=== PATIENT | female | born 1970 | race Caucasian/White ===

== ENCOUNTER 2017-06-25 15:52 | Observation (INO) | payer BC ==
[2017-06-25] MEDS ORDERED: Aspirin 325 mg EC Tablets PO STA (16:09)
[2017-06-25] MEDS ORDERED: Nitroglycerin 2% Ointment Foilpak UD TOP STA (16:10)
--- NOTE | 2017-06-25 16:11 | ED PDOC ---
Arrival/HPI - General Time Seen by Provider: 06/25/17 15:53 Historian: Patient - History of Present Illness Narrative History of Present Illness (Text): 06/25/17 16:00 Berna Rashid is a 46 year old female, whose past medical history includes hypertension, who presents to the emergency department complaining of sharp, intermittent chest pain for the last 2 days. Patient states that she experiences some associated nausea and headaches. Patient also notes that her blood pressure has been elevated lately, around 180/110. Patient denies any dizziness, lightheadedness, shortness of breath, or any other complaints at this time. Time/Duration: < week Symptom Onset: Gradual Symptom Course: Intermittent Activities at Onset: Light Context: Home Associated Symptoms (Text): 06/25/17 16:28 Sharp intermittent chest pain lasting on the order of seconds for the last several days. She has had multiple times previously. Workup includes coronary artery CT scan, which the patient reports as normal. Her blood pressure has been 180/110. She appears anxious and nervous, but in no distress. Past Medical History - Provider Review Nursing Documentation Reviewed: Yes Family/Social History - Physician Review Nursing Documentation Reviewed: Yes Family/Social History: No Known Family HX Smoking Status: Never Smoked Hx Alcohol Use: No Hx Substance Use: No Allergies/Home Meds Allergies/Adverse Reactions: Allergies No Known Allergies Allergy (Unverified 06/25/17 16:09) Review of Systems - Physician Review All systems were reviewed & negative as marked: Yes - Review of Systems Constitutional: absent: Fatigue, Fevers Eyes: absent: Vision Changes ENT: absent: Hearing Changes Respiratory: absent: SOB, Cough, Wheezing Cardiovascular: Chest Pain. absent: Palpitations, Syncope Gastrointestinal: Nausea. absent: Abdominal Pain, Diarrhea, Vomiting Genitourinary Female: absent: Dysuria Musculoskeletal: absent: Arthralgias Skin: absent: Rash, Pruritis Neurological: Headache. absent: Dizziness, Focal Weakness, Gait Changes, Speech Changes, Facial Droop, Disequilibrium, Seizure Endocrine: absent: Diaphoresis Hemo/Lymphatic: absent: Adenopathy Psychiatric: absent: Anxiety, Depression Physical Exam Vital Signs Reviewed: Yes Vital Signs Temp Pulse Resp BP Pulse Ox 06/25/17 20:08 96 H 16 138/71 98 06/25/17 18:19 98 H 131/84 98 06/25/17 17:32 93 H 18 136/94 H 100 06/25/17 16:26 98.0 F 85 18 176/109 H 100 Temperature: Afebrile Blood Pressure: Normal Pulse: Tachycardic (176/108) Respiratory Rate: Normal Appearance: Positive for: Other (obese) Pain Distress: None Mental Status: Positive for: Alert and Oriented X 3 - Systems Exam Head: Present: Atraumatic, Normocephalic Pupils: Present: PERRL Extroacular Muscles: Present: EOMI Conjunctiva: Present: Normal Ears: Present: NORMAL TM, Normal Canal. No: Erythema Mouth: Present: Moist Mucous Membranes Pharnyx: No: ERYTHEMA, EXUDATE, TONSILS ENLARGED Neck: Present: Normal Range of Motion Respiratory/Chest: Present: Clear to Auscultation, Good Air Exchange. No: Respiratory Distress, Accessory Muscle Use Cardiovascular: Present: Regular Rate and Rhythm, Normal S1, S2. No: Murmurs Abdomen: No: Tenderness, Distention, Peritoneal Signs, Rebound, Guarding Back: Present: Normal Inspection. No: Midline Tenderness, Paraspinal Tenderness Upper Extremity: Present: Normal Inspection. No: Cyanosis, Edema Lower Extremity: Present: Normal Inspection. No: Edema Neurological: Present: GCS=15, CN II-XII Intact, Speech Normal, Motor Func Grossly Intact, Normal Sensory Function, Normal Cerebellar Funct, Norm Deep Tendon Reflexes, Gait Normal Skin: Present: Warm, Dry, Normal Color. No: Rashes Psychiatric: Present: Alert, Oriented x 3, Normal Insight, Normal Concentration Medical Decision Making ED Course and Treatment: 06/25/17 16:12 Impression: 46 year old female complaining of sharp, intermittent chest pain for the last 2 days. Plan: -- EKG -- Chest X-ray -- Labs -- Ecotrin and Nitro-bid -- Reassess and disposition Progress Notes: 06/25/17 16:25 EKG shows normal sinus rhythm rate approximately [address] and T- wave changes with no old available for comparison. 06/25/17 18:03 Blood pressure is markedly improved, but the patient has a headache secondary to nitroglycerin. Will treat with Tylenol and reevaluate. 06/25/17 18:30 Chest X-ray: Creator : Pedro Moore MD IMPRESSION: No active disease. - Lab Interpretations Lab Results: 06/25/17 17:00 06/25/17 17:00 Lab Results 06/25/17 17:00: Sodium 142, Potassium 3.5 L, Chloride 102, Carbon Dioxide 26, Anion Gap 17, BUN 11, Creatinine 0.7, Est GFR ( Amer) > 60, Est GFR (Non- Af Amer) > 60, Random Glucose 95, Calcium 10.5, Total Bilirubin 0.4, AST 37 H, ALT 41, Alkaline Phosphatase 108, Lactate Dehydrogenase 504, Total Creatine Kinase 94, Troponin I < 0.01, Total Protein 8.9 H, Albumin 4.8, Globulin 4.1, Albumin/Globulin Ratio 1.2 06/25/17 17:00: D-Dimer, Quantitative < 200 06/25/17 17:00: WBC 10.7, RBC 4.95, Hgb 14.9, Hct 43.1, MCV 87.1, MCH 30.1, MCHC 34.6, RDW 12.2, Plt Count 356, MPV 10.1, Gran % 60.9, Lymph % (Auto) 29.9, Villalba % (Auto) 4.6, Eos % (Auto) 4.0, Baso % (Auto) 0.6, Gran # 6.54 H, Lymph # ( Auto) 3.2, Villalba # (Auto) 0.5, Eos # (Auto) 0.4, Baso # (Auto) 0.06 I have reviewed the lab results: Yes - RAD Interpretation Radiology Orders: 06/25/17 16:09 CHEST PORTABLE [RAD] Stat Chest 1 view shows no infiltrate effusion or cardiomegaly [employer] Programmer: Radiologist - Medication Orders Current Medication Orders: Discontinued Medications Acetaminophen (Tylenol 325mg Tab) 975 mg PO STAT STA Stop: 06/25/17 18:03 Last Admin: 06/25/17 18:39 Dose: 975 mg MAR Pain/Vitals Document 06/25/17 18:39 MS (Rec: 06/25/17 18:39 MS [facility] [place]-[id number]) Pain Reassessment Is This A Pain ReAssessment? No Sleep Is patient sleeping during reassessment? 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 I have reviewed the chart and agree that the record accurately reflects my personal performance of the history, physical exam, medical decision making, and the department course for this patient. I have also personally directed, reviewed, and agree with the discharge instructions and disposition. Disposition/Present on Arrival - Present on Arrival Any Indicators Present on Arrival: No History of DVT/PE: No History of Uncontrolled Diabetes: No Urinary Catheter: No History of Decub. Ulcer: No - Disposition Have Diagnosis and Disposition been Completed?: Yes Diagnosis: Chest pain, Hypertension Disposition: HOSPITALIZED Disposition Time: 19:32 Patient Plan: Observation, Telemetry Patient Problems: Current Active Problems Problem Status Onset Chest pain Acute Hypertension Acute Condition: GOOD
[2017-06-25 16:58] VITALS: BMI 34.9
[2017-06-25 17:21] LABS: BASO # 0.06 K/mm3 (0.0-2.0); BASO % 0.6 % (0.0-3.0); EOS # 0.4 (0.0-0.7); GRAN # 6.54 (1.4-6.5); GRAN % 60.9 % (50.0-68.0); HEMOGLOBIN 14.9 g/dL (12.0-16.0); LYMPH # 3.2 (1.2-3.4); LYMPH % 29.9 % (22.0-35.0); MEAN CELL VOLUME 87.1 fl (80.0-105.0); MEAN CORPUSCULAR HEMOGLOBIN 30.1 pg (25.0-35.0); MEAN CORPUSCULAR HGB CONC 34.6 g/dl (31.0-37.0); MEAN PLATELET VOLUME 10.1 fl (7.0-11.0); MONO # 0.5 (0.1-0.6); MONO % 4.6 % (1.0-6.0); RBC 4.95 10^6/uL (3.5-6.1); RED CELL DISTRIBUTION WIDTH 12.2 % (11.5-14.5); WHITE BLOOD COUNT 10.7 10^3/ul (4.5-11.0)
[2017-06-25 17:32] LABS: ALB/GLOB RATIO 1.2 (1.1-1.8); ALBUMIN 4.8 g/dL (3.0-4.8); ALT/SGPT 41 U/L (7-56); AST/SGOT 37 U/L (14-36); BLOOD UREA NITROGEN 11 mg/dL (7-21); CALCIUM 10.5 mg/dL (8.4-10.5); GFR AFRICAN-AMERICAN > 60; GFR NON-AFRICAN AMERICAN > 60
[2017-06-25 17:41] LABS: TROPONIN I < 0.01 ng/mL
--- NOTE | 2017-06-25 17:41 | RAD ---
HISTORY: Chest pain. COMPARISON: No prior. FINDINGS: LUNGS: No active pulmonary disease. PLEURA: No significant pleural effusion identified, no pneumothorax apparent. CARDIOVASCULAR: No radiographic findings to suggest acute or significant cardiovascular disease. OSSEOUS STRUCTURES: No significant abnormalities. VISUALIZED UPPER ABDOMEN: Normal. OTHER FINDINGS: None. IMPRESSION: No active disease.
--- NOTE | 2017-06-25 19:18 | CARD ---
APPROVED REPORT EKG Measurement Heart [id number] <Conclusion> Normal sinus rhythm Possible Left atrial enlargement ST & T wave abnormality, nonspecific Abnormal ECG
[2017-06-26 01:22] LABS: IRON 104 ug/dL (45-180)
[2017-06-26 01:23] LABS: HDL CHOLESTEROL 65 mg/dL (29-60)
[2017-06-26 01:31] LABS: % IRON SATURATION 33 % (20-55); TOTAL IRON BINDING CAPACITY 318 ug/dL (265-497)
[2017-06-26 01:34] LABS: LDL CHOLESTEROL 55 mg/dL (0-129); TROPONIN I < 0.01 ng/mL
[2017-06-26 06:07] VITALS: O2SAT 98
[2017-06-26 06:49] LABS: MEAN CELL VOLUME 87.6 fl (80.0-105.0); MEAN CORPUSCULAR HEMOGLOBIN 29.2 pg (25.0-35.0); MEAN CORPUSCULAR HGB CONC 33.3 g/dl (31.0-37.0); MEAN PLATELET VOLUME 10.2 fl (7.0-11.0); RBC 4.35 10^6/uL (3.5-6.1); RED CELL DISTRIBUTION WIDTH 12.3 % (11.5-14.5); WHITE BLOOD COUNT 13.6 10^3/ul (4.5-11.0)
[2017-06-26 07:23] LABS: BLOOD UREA NITROGEN 17 mg/dL (7-21); GFR AFRICAN-AMERICAN > 60; GFR NON-AFRICAN AMERICAN > 60
[2017-06-26 07:35] LABS: HEMOGLOBIN 12.7 g/dL (12.0-16.0)
[2017-06-26 07:54] LABS: TROPONIN I < 0.01 ng/mL
[2017-06-26] MEDS ORDERED: Potassium Chloride 20 mEq ER Tab PO ONE ×2 (09:15→09:43)
[2017-06-26] MEDS ORDERED: RANEXA 500 MG PO SCH (10:00)
[2017-06-26] MEDS ORDERED: Apap-Butalbital-Caffeine 325-50-40mg Tab PO PRN (10:36)
--- NOTE | 2017-06-26 10:40 | HP ---
CHIEF COMPLAINT: Chest pain. HISTORY OF PRESENT ILLNESS: Ms. Berna Rahsid is a 46-year-old female with a past medical history of hypertension who came to the Emergency Department complaining of sharp, intermittent chest pain for the last two days. The patient states that she experienced some associated nausea and headache. The patient also noticed that her blood pressure has been elevated lately, around about 180/110. The patient denies any dizziness, lightheadedness, shortness of breath, or any fever or chills. No hematuria or hematochezia. She had similar type of pain multiple times previously. Workup include coronary artery CT, which the patient reports as normal. Her blood pressure has been 180/110 here. Anxious and nervous, but in no distress. PAST MEDICAL HISTORY: Nonsignificant. FAMILY HISTORY: Father and mother, nonsignificant. HABITS: Never smoked. No drugs. No ethanol. ALLERGIES: THE PATIENT IS NOT ALLERGIC WITH ANY MEDICATIONS. REVIEW OF SYSTEMS: The patient was seen and examined at the bedside. Looking comfortable. Sitting in the ER, but playing with her cell phone. No fatigue or fever. No vision changes. No hearing changes. No shortness of breath, coughing, or wheezing. Having chest pain. Has no palpitation or syncope. Has nausea, but no abdominal pain, diarrhea, or vomiting. No dysuria or arthralgia. No rash. Complaining of headache, but no dizziness, focal weakness or gait changes. No diaphoresis. No adenopathy or depression. PHYSICAL EXAMINATION VITAL SIGNS: Temperature 98, pulse 85, respiratory rate 18, blood pressure 176/109, and pulse oximetry 100%, but repeat blood pressure was 138/71. HEENT: Head: Normocephalic, atraumatic. Eyes: PERRLA. Extraocular movements are intact. Conjunctivae clear. Nose patent. Mucous membranes are moist. NECK: Supple. No carotid bruits, JVD, or thyromegaly. CHEST: Bilaterally symmetrical. HEART: S1 and S2 positive. LUNGS: Clear to auscultation. ABDOMEN: Soft. Bowel sounds are positive. No organomegaly. EXTREMITIES: No edema. No cyanosis. NEUROLOGIC: The patient is awake and alert. Moving all four extremities with no focal deficit. LABORATORY DATA: White blood cells noted , hemoglobin 14.9, hematocrit 43.1, and platelets 356. Sodium 142, potassium 3.5, BUN 11, creatinine 0.7 and glucose 95. ASSESSMENT AND PLAN: Ms. Rashid is a 46-year-old lady with hypokalemia - replaced, who came with acute hypertension and now is under control, chest pain, nauseousness, and anxiety. Chest pain and hypertension is acute. We re-admitted the patient. Cardiac consult called. Cardiac enzymes x3 ordered. Abnormal liver function test. Aspirin given. Tylenol ordered. Gastric and deep venous thrombosis prophylaxes. Repeat labs. We will follow up. Criss Banda MD MTDD
--- NOTE | 2017-06-26 11:30 | CT ---
PROCEDURE: CT HEAD WITHOUT CONTRAST. HISTORY: headaches COMPARISON: None available. TECHNIQUE: Axial computed tomography images were obtained through the head/brain without intravenous contrast. Radiation dose: Total exam DLP = 972 mGy-cm. This CT exam was performed using one or more of the following dose reduction techniques: Automated exposure control, adjustment of the mA and/or kV according to patient size, and/or use of iterative reconstruction technique. FINDINGS: HEMORRHAGE: No intracranial hemorrhage. BRAIN: No mass effect or edema. No atrophy or chronic microvascular ischemic changes. VENTRICLES: Unremarkable. No hydrocephalus. CALVARIUM: Unremarkable. PARANASAL SINUSES: Unremarkable as visualized. No significant inflammatory changes. MASTOID AIR CELLS: Unremarkable as visualized. No inflammatory changes. OTHER FINDINGS: None. IMPRESSION: No acute findings
--- NOTE | 2017-06-26 12:56 | CARD ---
APPROVED REPORT EXAM: Two-dimensional and M-mode echocardiogram with Doppler and color Doppler. INDICATION Chest Pain 2D DIMENSIONS Left Atrium (2D)3.4 (1.6-4.0cm)IVSd1.2 (0.7-1.1cm) LVDd4.1 (3.9-5.9cm)PWd1.2 (0.7-1.1cm) LVDs2.7 (2.5-4.0cm)FS (%) 35.0 % LVEF (%)64.8 (>50%) M-Mode DIMENSIONS Aortic Root2.50 (2.2-3.7cm)Aortic Cusp Exc.1.80 (1.5-2.0cm) Aortic Valve AoV Peak Jhnyzofj638.0cm/Caden Peak GR.14mmHg Mitral Valve MV E Moeklggs39.5cm/sMV A Vzaycoae91.7cm/sE/A ratio0.9 TDI E/Lateral E'0.0E/Medial E'0.0 Tricuspid Valve TR Peak [id number]/sRAP [id number] Peak Gr.14mmHg [id number] LEFT VENTRICLE The left ventricle is normal size. There is borderline to mild concentric left ventricular hypertrophy. The left ventricular function is normal.EF-60-65% There is normal LV segmental wall motion. Transmitral Doppler flow pattern is Grade III-reversible restrictive diastolic dysfunction. No left ventricle thrombus noted on this study. There is no ventricular septal defect visualized. There is no left ventricular aneurysm. There is no mass noted in the left ventricle. RIGHT VENTRICLE The right ventricle is normal size. There is normal right ventricular wall thickness. The right ventricular systolic function is normal. ATRIA The left atrium size is normal. The right atrium size is normal. The interatrial septum is intact with no evidence for an atrial septal defect. AORTIC VALVE The aortic valve is thickened but opens well. There is trivial aortic regurgitation. There is no aortic valvular stenosis. There is no aortic valvular vegetation. MITRAL VALVE The mitral valve is thickened but opens well. Mitral regurgitation is trace. There is no mitral valve stenosis. There is no evidence of mitral valve prolapse. TRICUSPID VALVE The tricuspid valve leaflets are thickened , but open well. There is trace tricuspid regurgitation.RVSP-24 mmof hg. There is no tricuspid valve stenosis. There is no tricuspid valve prolapse or vegetation. PULMONIC VALVE The pulmonary valve is normal in structure. GREAT VESSELS The aortic root is normal in size. The ascending aorta is normal in size. The pulmonary artery is normal. The IVC is normal in size and collapses >50% with inspiration. PERICARDIAL EFFUSION There is no pleural effusion. There is no pericardial effusion. <Conclusion> Normal chamber Size. Ef-60-65% trace MR/TR RVSp-24 mmof hg.
[2017-06-26 13:17] LABS: FOLATE 8.8 ng/mL
[2017-06-26 14:05] VITALS: BP 124/83; RESP 18; TEMP 99.2
[2017-06-26 16:13] VITALS: PULSE 82
--- NOTE | 2017-06-26 18:44 | CON ---
DATE: 06/26/2017 REASON FOR THE CONSULTATION: Followup cardiac evaluation, admitted with uncontrolled hypertension and intermittent chest pain. BRIEF CLINICAL HISTORY: This is a 46-year-old female with past medical history significant for hypertension, came to the emergency room with complaint of sharp intermittent pain for 2 days associated with nausea and also complained of high blood pressure 180/110. She states that when the blood pressure gets high, patient feels this type of pain, also patient had been on Ranexa, being followed by [facility] by Dr. Mayorga, chief creative officer. Had a recent stress test done at the end of 2016 and the scan according to her was negative. Denies any dizziness. Patient denies any chest pain on exertion. Patient work as a physical therapist. PAST MEDICAL HISTORY: Significant for chest pain, intermittent for couple of months, uncontrolled hypertension. SOCIAL HISTORY: Denies smoking. Denies any history of alcohol abuse. FAMILY HISTORY: No history of coronary artery disease. CURRENT MEDICATIONS: Patient is taking at home, Crestor, aspirin, Ranexa, metformin and valsartan. ALLERGIES: NO KNOWN DRUG ALLERGIES. REVIEW OF SYSTEMS: As per HPI. PHYSICAL EXAMINATION: As follows; VITAL SIGNS: Height of the patient is 4 feet 11 inches, weight of the patient is 173 pounds, body mass index 34.9 kg/m2, heart rate 76, blood pressure 139/77. HEENT: PERRLA. Extraocular muscles intact. NECK: Supple. No carotid bruits or thyromegaly. CHEST: Clear to auscultation. HEART: S1 and S2 regular. ABDOMEN: Soft. EXTREMITIES: Clubbing and cyanosis negative. DIAGNOSTIC DATA: EKG shows normal sinus, left axis deviation, no acute ST-T changes noted. LABORATORY DATA: Blood workup: WBC 13.6, hematocrit 38.1, platelet count 327. Chemistry shows sodium 139, potassium 3.3, chloride 102, carbon dioxide of 28, anion gap of 13, BUN 17, creatinine 0.7. Troponin 0.01 x2, negative. IMPRESSION: Atypical chest pain, uncontrolled hypertension, being followed by Dr. Mayorga at [facility], chief creative officer, had an appointment for , admitted with uncontrolled hypertension, 180/110. RECOMMENDATION: Aggressive control of blood pressure. Resume previous medication. Add lipid profile, TSH, hemoglobin A1c. If patient remained stable, possibly discharge, follow up with chief creative officer. Resume her previous blood pressure medication. We will follow with you. Further workup as per PMD. We will also add troponin is negative. We will also add third sets of troponin for the morning with lipid profile, TSH, hemoglobin A1c. If the troponin remains negative in third sets, patient can be discharged, follow with PMD. Thank you, Dr. Banda, for providing us the opportunity in taking care of the patient, Berna Rashid. Patricio Wan MD
--- NOTE | 2017-06-28 04:33 | DS ---
CHIEF COMPLAINT: Chest pain. HISTORY OF PRESENT ILLNESS: Ms. Berna Rashid is a 46-year-old female with past medical history of hypertension. 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 The patient stated that she has experienced some associated nausea and headache. The patient also noted her blood pressure has been elevated around about 180/110. The patient denies any dizziness, lightheadedness, shortness of breath, or any fever or chills. No hematuria or hematochezia. She had similar type of pain multiple times previously. Workup includes coronary artery CT, which the patient reports was normal. Her blood pressure was here 180/110, anxious and nervous, but not in distress. We admitted the patient, did consult with transition nurse, Dr. Patricio Wan. He saw the patient. Echocardiography done. He cleared the patient for discharge. Stress test as outpatient. On 06/26/2017, the patient was complaining about severe headache. I did CAT scan of the head stat, gave Fioricet that helped the patient for headache. So, discharged the patient home with prescription of Fioricet. Will follow up as outpatient with transition nurse, neurologist and primary care physician's office and urged to take blood pressure medicine. PAST MEDICAL HISTORY: Nonsignificant. FAMILY HISTORY: Father and mother nonsignificant. HABITS: Never smoked. No drug. No ethanol. ALLERGIES: THE PATIENT IS NOT ALLERGIC WITH ANY MEDICATION. REVIEW OF SYSTEMS: The patient was seen and examined on the bedside, looking comfortable. No nausea, vomiting or diarrhea. No hematuria or hematochezia. No swelling of the leg. No chest pain, no palpitation, no headache, no dizziness. That moment upon the time of discharge, no fever, no chills. PHYSICAL EXAMINATION: VITAL SIGNS: Temperature 98.6, blood pressure 139/77, pulse 76, respiratory rate 18. HEENT: Head normocephalic and atraumatic. Eyes: PERRLA. Extraocular movements intact. Conjunctivae clear. Nose patent. Mucous membranes moist. NECK: Supple. No carotid bruit. No JVD or thyromegaly. CHEST: Bilaterally symmetrical. HEART: S1 and S2 positive. LUNGS: Clear to auscultation. ABDOMEN: Soft. Bowel sounds present. No organomegaly. EXTREMITIES: No edema. No cyanosis. NEUROLOGIC: Patient is awake, alert. Moving all four extremities. No focal deficit. LABORATORY DATA: White blood cells 13.6, hemoglobin 12.7, hematocrit 38.1, platelet 327. Sodium 139, potassium 3.3, BUN 17, creatinine 0.7, glucose 193. Hemoglobin A1c is 5.7, magnesium 2.1. ASSESSMENT AND PLAN: Ms. Berna Rashid is a 46-year-old lady with leukocytosis, hypokalemia replaced, hyperglycemia, but hemoglobin A1c 5.7 like prediabetic, has headache. CAT scan of the head is done. Fioricet given, got better. CAT scan of the head reviewed by me. According to transition nurse, chest pain is atypical, uncontrolled hypertension, being followed up by at [facility]. Film Printer has appointment on , was admitted ,blood pressure got better. Aggressive control of blood pressure is recommended. Labs reviewed. Troponins negative all three sets. Film Printer cleared the patient, so we discharged the patient with prescription of the medication with followup. Criss Banda MD MTDD
== END 2017-06-26 16:53 | disposition home or self-care (01) ==
LOC: ED 15:52 → ERH 19:27 → 3RSO 23:12
PROVIDERS: ADMIT Internal Medicine; ATTEND Internal Medicine
DX: I10 Essential (primary) hypertension (principal); E87.6 Hypokalemia; F41.9 Anxiety disorder, unspecified; R07.89 Other chest pain; R40.2412 Glasgow coma scale score 13-15, at arrival to emergency department; Z68.34 Body mass index [BMI] 34.0-34.9, adult; D72.829 Elevated white blood cell count, unspecified; R73.03 Prediabetes
CPT/HCPCS: 36415; 70450; 71045; 80048; 80053; 80061; 82550; 82607; 82746; 82948; 83036; 83540; 83550; 83615; 83735; 84443; 84484; 85025; 85027; 85378; 93005; 93306; 99285; G0378